=== PATIENT | female | born 1950 | race Hispanic/Latino ===

== ENCOUNTER 2018-05-24 05:56 | Inpatient (IN) | payer MEDICARE ==
[2018-05-20 16:49] VITALS: BMI 20.3
[2018-05-24] MEDS ORDERED: Ropivacaine 0.5% 30ML IV ONE (07:02)
[2018-05-24 07:09] LABS: BASO # 0.1 K/uL (0.0-0.2); BASO % 0.9 % (0.0-2.0); EOS # 0.2 K/uL (0.0-0.7); EOS % 2.1 % (0.0-4.0); HEMOGLOBIN 13.4 g/dL (12.0-16.0); LYMPH # 2.7 K/uL (1.0-4.3); LYMPH % 26.3 % (20.0-40.0); MEAN CELL VOLUME 99.7 fl (81.0-99.0); MEAN CORPUSCULAR HEMOGLOBIN 33.4 pg (27.0-31.0); MEAN CORPUSCULAR HGB CONC 33.6 g/dL (33.0-37.0); MEAN PLATELET VOLUME 7.8 fl (7.2-11.7); MONO % 9.6 % (0.0-10.0); NEUT # 6.3 K/uL (1.8-7.0); NEUT % 61.1 % (50.0-75.0); NRBC % 0.2 % (0.0-0.0); RBC 3.99 Mil/uL (3.80-5.20); RED CELL DISTRIBUTION WIDTH 14.1 % (11.5-14.5); WHITE BLOOD COUNT 10.4 K/uL (4.8-10.8)
[2018-05-24] MEDS ORDERED: Lidocaine 4% (Laryng-O-Jet) Kit MM ONE (07:12)
[2018-05-24] MEDS ORDERED: Rocuronium 10 mg/ml (5 ml) ONE ×2 (07:12→10:01)
[2018-05-24] MEDS ORDERED: Succinylcholine 200 mg/10 ml Inj IV ONE (07:12)
[2018-05-24] MEDS ORDERED: Propofol 10 mg/ml Inj (20 ML) ONE (07:12)
[2018-05-24] MEDS ORDERED: Neostigmine 1:1000 (1 mg/ml) Inj ONE (07:12)
--- NOTE | 2018-05-24 07:16 | CP.PCM.CON ---
History of Present Illness - History of Present Illness History of Present Illness: 67F complains of continued left shoulder pain after fall and proximal humerus fracture approx 6 weeks ago for total shoulder replacement. RHD. PMH: HTN, graves disease, wrist fx, arm fx as child PSH: right knee arthroscopy, cholecystectomy, appendectomy cardiology clearance is on chart no recent illness Review of Systems - Review of Systems All systems: reviewed and no additional remarkable complaints except - Musculoskeletal Musculoskeletal: As Per HPI Past Patient History - Past Medical History & Family History Past Medical History?: Yes Past Family History: Reviewed and not pertinent - Past Social History Smoking Status: Never Smoked - CARDIAC Hx Cardiac Disorders: Yes Hx Hypertension: Yes - PULMONARY Hx Respiratory Disorders: No - NEUROLOGICAL Hx Neurological Disorder: No - HEENT Hx HEENT Problems: No - RENAL Hx Chronic Kidney Disease: No - ENDOCRINE/METABOLIC Hx Endocrine Disorders: Yes Hx Hyperthyroidism: Yes Other/Comment: Graves disease - HEMATOLOGICAL/ONCOLOGICAL Hx Blood Disorders: No - INTEGUMENTARY Hx Dermatological Problems: No - MUSCULOSKELETAL/RHEUMATOLOGICAL Hx Musculoskeletal Disorders: Yes Hx Fractures: Yes (wrist, arm as child) - GASTROINTESTINAL Hx Gastrointestinal Disorders: No - GENITOURINARY/GYNECOLOGICAL Hx Genitourinary Disorders: No - PSYCHIATRIC Hx Psychophysiologic Disorder: Yes Hx Depression: Yes - SURGICAL HISTORY Hx Surgeries: Yes Hx Appendectomy: Yes Hx Arthroscopy: Yes (r KNEE 2016) Hx Cholecystectomy: Yes Other/Comment: RIGHT OVARIAN CYSTECTOMY - ANESTHESIA Hx Anesthesia: Yes Hx Anesthesia Reactions: No Hx Malignant Hyperthermia: No Has any member of the family had a problem w/ anesthesia?: No Meds Home Medications: Home Medication List Medication Instructions Recorded Confirmed Type Docusate [Colace] 100 mg PO DAILY #15 cap 05/25/18 Rx Ferrous Sulfate 325 mg PO BID #60 tablet 05/25/18 Rx oxyCODONE/Acetaminophen [Percocet 1 tab PO Q4 #20 tab 05/25/18 Rx 5/325 mg Tab] Allergies/Adverse Reactions: Allergies Allergy/AdvReac Type Severity Reaction Status Date / Time adhesive tape Allergy RASH Verified 05/20/18 16:50 Physical Exam - Constitutional Appears: Well, No Acute Distress - Neck Exam Neck exam: Positive for: Full Rom, Normal Inspection - Respiratory Exam Respiratory Exam: NORMAL BREATHING PATTERN - Cardiovascular Exam Additional comments: +radial pulse - Expanded Upper Extremities Exam Left Shoulder exam: normal inspection Neuro motor exam: finger 2-5 abduction intact, thumb abduction, thumb IP flexion intact, thumb opposition intact, wrist extension intact Neurosensory exam: median nerve intact, radial nerve intact, ulnar nerve intact Vascular exam: radial pulse - Neurological Exam Neurological exam: Alert, Oriented x3 - Psychiatric Exam Psychiatric exam: Normal Affect, Normal Mood - Skin Skin Exam: Dry, Intact, Normal Color, Warm Results - Vital Signs Recent Vital Signs: Last Vital Signs Temp 97.5 F L 05/24/18 06:40 Pulse 70 05/24/18 06:42 Resp 18 05/24/18 06:40 BP 147/80 05/24/18 06:40 Pulse Ox 100 05/24/18 06:40 - Labs Result Diagrams: 05/25/18 05:20 05/25/18 05:20 Labs: Laboratory Results - last 24 hr 05/24/18 06:55 WBC 10.4 RBC 3.99 Hgb 13.4 Hct 39.8 MCV 99.7 H MCH 33.4 H MCHC 33.6 RDW 14.1 Plt Count 213 MPV 7.8 Neut % (Auto) 61.1 Lymph % (Auto) 26.3 [place] % (Auto) 9.6 Eos % (Auto) 2.1 Baso % (Auto) 0.9 Neut # (Auto) 6.3 Lymph # (Auto) 2.7 [place] # (Auto) 1.0 H Eos # (Auto) 0.2 Baso # (Auto) 0.1 Assessment & Plan (1) Closed fracture of left proximal humerus Assessment and Plan: for total shoulder replacement today NPO T&S risks/benefits/alt of surgery discussed by Dr. Jay, patient verbalizes understanding and consents to procedure Status: Acute
[2018-05-24] MEDS ORDERED: Absorbable Gelatin Sponge Size 12-7 ONE (07:21)
[2018-05-24] MEDS ORDERED: Bacitracin Ointment 30 GM TUBE ONE (07:21)
[2018-05-24] MEDS ORDERED: Thrombin Topical 5,000 Int Units Spray Kit ONE (07:22)
--- NOTE | 2018-05-24 07:38 | CP.PCM.HP ---
History of Present Illness - History of Present Illness History of Present Illness: Orthopedist: Dr Jay PMD: Pedro Richey MD Chief Complaint: Left shoulder Pain The Patient was seen and evaluated in SDS unit HPI: 67 years old female with hx of Depression, Graves Disease with associated A Fib, Comes with pain to the left shoulder post fall with proximal left humerus fracture 6 weeks ago. She comes for an elective left total shoulder replacement. PMH: Graves Disease; Graves disease Flare associated Atrial Fibrillation; HTN; Wrist and arm fracture as a child PSH: Cholecystectomy; Appendectomy; Right knee Arthroplasty; Ovarian Cystostomy SH: Former smoker; No illegal drug use; No Alcohol; ; works as a Psychotherapist FH: States: No known family Hx Allergies: NKDA Adhesive tape Medication: Reviewed Present on Admission - Present on Admission Any Indicators Present on Admission: No History of DVT/PE: No History of Uncontrolled Diabetes: No Urinary Catheter: No Decubitus Ulcer Present: No Review of Systems - Constitutional Constitutional: absent: Anorexia, Chills, Fever, Headache, Lethargy - EENT Eyes: absent: Blurred Vision, Diplopia, Floaters, Requires Corrective Lenses Ears: absent: Decreased Hearing, Ear Discharge, Tinnitus Nose/Mouth/Throat: absent: Epistaxis, Nasal Congestion, Nasal Discharge, Sinus Pain, Sinus Pressure - Cardiovascular Cardiovascular: absent: Chest Pain, Dyspnea, Edema - Respiratory Respiratory: absent: Cough, Dyspnea, Wheezing, Stridor - Gastrointestinal Gastrointestinal: absent: Abdominal Pain, Constipation, Diarrhea - Genitourinary Genitourinary: absent: Dysuria, Flank Pain, Urinary Frequency - Musculoskeletal Musculoskeletal: Arthralgias. absent: Joint Swelling Additional comments: Left shoulder pain - Integumentary Integumentary: absent: Pruritus, Rash, Skin Ulcer, Sores, Striae, Swelling - Neurological Neurological: absent: Confusion, Dizziness, Focal Weakness, Weakness - Psychiatric Psychiatric: Anxiety, Depression. absent: Panic Attacks - Endocrine Endocrine: absent: Palpitations, Polydipsia, Polyphagia, Polyuria - Hematologic/Lymphatic Hematologic: absent: Easy Bleeding, Easy Bruising Past Patient History - Past Medical History & Family History Past Medical History?: Yes Past Family History: Reviewed and not pertinent - Past Social History Smoking Status: Former Smoker Chewing Tobacco Use: No Cigar Use: No Alcohol: None Home Situation {Lives}: With Family - CARDIAC Hx Cardiac Disorders: Yes Hx Hypertension: Yes - PULMONARY Hx Respiratory Disorders: No - NEUROLOGICAL Hx Neurological Disorder: No - HEENT Hx HEENT Problems: No - RENAL Hx Chronic Kidney Disease: No - ENDOCRINE/METABOLIC Hx Endocrine Disorders: Yes Hx Hyperthyroidism: Yes Other/Comment: Graves disease - HEMATOLOGICAL/ONCOLOGICAL Hx Blood Disorders: No - INTEGUMENTARY Hx Dermatological Problems: No - MUSCULOSKELETAL/RHEUMATOLOGICAL Hx Musculoskeletal Disorders: Yes Hx Fractures: Yes (wrist, arm as child) - GASTROINTESTINAL Hx Gastrointestinal Disorders: No - GENITOURINARY/GYNECOLOGICAL Hx Genitourinary Disorders: No - PSYCHIATRIC Hx Psychophysiologic Disorder: Yes Hx Depression: Yes - SURGICAL HISTORY Hx Surgeries: Yes Hx Appendectomy: Yes Hx Arthroscopy: Yes (r KNEE 2016) Hx Cholecystectomy: Yes Other/Comment: RIGHT OVARIAN CYSTECTOMY - ANESTHESIA Hx Anesthesia: Yes Hx Anesthesia Reactions: No Hx Malignant Hyperthermia: No Has any member of the family had a problem w/ anesthesia?: No Meds Allergies/Adverse Reactions: Allergies Allergy/AdvReac Type Severity Reaction Status Date / Time adhesive tape Allergy RASH Verified 05/20/18 16:50 Physical Exam - Constitutional Appears: No Acute Distress - Head Exam Head Exam: ATRAUMATIC, NORMAL INSPECTION, NORMOCEPHALIC - Eye Exam Eye Exam: EOMI, Normal appearance Pupil Exam: NORMAL ACCOMODATION, PERRL - ENT Exam ENT Exam: Mucous Membranes Moist, Normal Exam, Normal External Ear Exam - Neck Exam Neck exam: Positive for: Full Rom, Normal Inspection, Tenderness - Respiratory Exam Respiratory Exam: Clear to Auscultation Bilateral. absent: Rales, Rhonchi, Wheezes - Cardiovascular Exam Cardiovascular Exam: REGULAR RHYTHM, RRR, +S1, +S2 - GI/Abdominal Exam GI & Abdominal Exam: Normal Bowel Sounds, Soft. absent: Organomegaly, Tenderness - Rectal Exam Rectal Exam: Deferred - Extremities Exam Extremities exam: Positive for: full ROM, normal inspection. Negative for: calf tenderness, pedal edema - Back Exam Back exam: NORMAL INSPECTION. absent: CVA tenderness (L), CVA tenderness (R) - Neurological Exam Neurological exam: Alert, CN II-XII Intact, Oriented x3, Reflexes Normal - Psychiatric Exam Psychiatric exam: Normal Affect, Normal Mood - Skin Skin Exam: Dry, Intact, Normal Color, Warm Results - Vital Signs Recent Vital Signs: Last Vital Signs Temp 97.5 F L 05/24/18 06:40 Pulse 70 10/22/18 06:42 Resp 18 05/24/18 06:40 BP 147/80 05/24/18 06:40 Pulse Ox 100 05/24/18 06:40 - Labs Result Diagrams: 05/24/18 06:55 Labs: Laboratory Results - last 24 hr 05/24/18 05/24/18 06:55 06:55 WBC 10.4 RBC 3.99 Hgb 13.4 Hct 39.8 MCV 99.7 H MCH 33.4 H MCHC 33.6 RDW 14.1 Plt Count 213 MPV 7.8 Neut % (Auto) 61.1 Lymph % (Auto) 26.3 [place] % (Auto) 9.6 Eos % (Auto) 2.1 Baso % (Auto) 0.9 Neut # (Auto) 6.3 Lymph # (Auto) 2.7 [place] # (Auto) 1.0 H Eos # (Auto) 0.2 Baso # (Auto) 0.1 Crossmatch See Detail BBK History Checked No verified bt Assessment & Plan - Assessment and Plan (Free Text) Assessment: #. left proximal Humerus Fracture #. HTN 3. Depression #. Graves Disease #. Hx od A Fib Plan: 67 years old female with hx of Depression, Graves Disease with associated A Fib, Comes with pain to the left shoulder post fall with proximal left humerus fracture 6 weeks ago. She comes for an elective left total shoulder replacement. #. left proximal Humerus Fracture - Consult Orthopedic, Dr Jay - Orthopedic management - Pain management - OT/PT #. HTN - Propranolol when Patient could take Oral meds - Follow BP 3. Depression - Seroquel - Lamictal/ Wellbutrin/ Seroquel to start when meds could be taken orally #. Graves Disease - Propranolol #. A Fib when Graves disease flares. EKG was sinus Rhythm. She has A CHADS2 score of 1 and could be treated with ASA - Post Surgery ASA #. DVT prophylaxis with SCD Lovenox to start from 05/25/17 #. Code Status: Full - Date & Time Date: 05/24/18 Time: 07:37
[2018-05-24] MEDS ORDERED: Lactated Ringer's 1,000 ML IV ONE (07:50)
[2018-05-24] MEDS ORDERED: EPINEPHrine 1 mg/ml (1:1000) Inj ONE (08:12)
[2018-05-24] MEDS ORDERED: Dexamethasone 4 mg/1 ml ONE (08:52)
[2018-05-24] MEDS ORDERED: ePHEDrine 50 mg/ml Inj ONE (09:29)
[2018-05-24] MEDS ORDERED: Sodium Chloride 0.9% 10 ML IV ONE (09:30)
[2018-05-24] MEDS ORDERED: Phenylephrine 10 mg/ml Inj ONE (09:33)
[2018-05-24] MEDS ORDERED: Dexamethasone 4 mg/1 ml IVP PRN (11:02)
--- NOTE | 2018-05-24 11:05 | PCM.ANESB1 ---
Interscalene Block - Brachial Plexus Date of Procedure: 05/24/18 Anesthesiologist: Mateus Leal Pre-Procedure Diagnosis: L shoulder fracture Post-Procedure Diagnosis: L shoulder fracture Procedure Performed: Interscalene Block of Brachial Plexus Left - Procedure Interscalene Block of Brachial Plexus: This procedure was explained to the patient that it is for post-operative pain management. Consent was obtained after a thorough discussion with the patient regarding the benefits and possible complications of local anesthetic block of the Brachial Plexus at the Interscalene area. The patient was brought to the Operating Room and standard monitors were applied. Time out was held with the circulating nurse to confirm the correct surgery and appropriate block. After applying Oxygen by nasal cannula and administering IV Sedation, the patient's head was gently rotated away from the Left operative shoulder and the anterior scalene groove was carefully palpated. The ultrasound transducer was then applied to the skin in the transverse plane and the brachial plexus was visualized lateral to the carotid artery and in between the anterior and middle scalene muscles. After identification,the anterior lateral portion of the neck was prepped with Chloroprep and Lidocaine 1% was injected subcutaneously for topical analgesia. At this point, a # 22 gauge Stimuplex 2 inches insulated needle was inserted into the interscalene groove and directed in a caudal and midline direction. The needle was inserted lateral to the ultrasound transducer in-plane towards the brachial plexus in a [id number] direction. Needle advancement was performed carefully under direct ultrasound visualization. Nerve stimulator was used and twitched of the affected extremity including the hand brachialis muscles, biceps and the deltoid was obtained at a current of 0.4 MA. After repeated negative aspiration,20cc of 0.5% ropivacaine was injected in 5cc aliquots. Under ultrasound guidance the local anesthetics were observed surrounding the roots of the brachial plexus. The needle was removed intact and sterile dressing was applied. The patient had stable vital signs, was conscious and in no apparent distress. The patient tolerated the interscalene block of the bracheal plexus well with stable vital signs and was prepared for subsequent surgery.
[2018-05-24] MEDS ORDERED: Lactated Ringer's 1,000 ML IV SCH (11:15)
[2018-05-24] MEDS ORDERED: Sodium Chloride 0.9% 1,000 ML IV SCH (11:30)
--- NOTE | 2018-05-24 12:30 | RAD ---
Date of service: 05/24/2018 PROCEDURE: Radiographs of the Left Shoulder HISTORY: s/p total shoulder, pt in pacu COMPARISON: No prior. FINDINGS: BONES: Status post left glenohumeral arthroplasty. No acute osseous fracture. Prosthesis grossly intact. JOINTS: As above SOFT TISSUES: Normal. OTHER FINDINGS: None. IMPRESSION: Left glenohumeral arthroplasty.
--- NOTE | 2018-05-24 13:47 | PCM.SURG1 ---
Surgeon's Initial Post Op Note - Surgeon's Notes Surgeon: Pierre Mercury Cracking Tester: Christine Obrien PA-C/ IRVING Harmon Type of Anesthesia: General Endo, Block Regional Anesthesia Administered By: DR Coni Leal Pre-Operative Diagnosis: Displaced 4 aprt fracture L [proximal humerus. R/O pathologic fracture Operative Findings: As above. rupture rotator cuff. biceps tendomn attenuation Post-Operative Diagnosis: as above Operation Performed: L Total Shoulder Replacement. Open reduction internal fixation displaced proximal L humerus fractur3. tenodesis long head biceps tendon. repair L rotator cuff. arthrotomy. Primary L total shouder arthroplasty. ORIF proximal humerus fracture. biceps tenodesis (long head). promary repair L rotator cuff. arthtromy/excision labrum. /exsison labrum Specimen/Specimens Removed: bone cartilage fx- r/o pathologic fx L proximal humerus Estimated Blood Loss: EBL {In ML}: 80 Blood Products Given: N/A Drains Used: No Drains Post-Op Condition: Fair Date of Surgery/Procedure: 05/24/18 Time of Surgery/Procedure: 08:55 (time in room/anaesthesia indcution time- )
[2018-05-24] MEDS: oxyCODONE 5 mg Immediate Release Tab PO PRN ×2 (14:10→19:14)
[2018-05-24] MEDS: ceFAZolin 1 GM in Sodium Chloride 0.9% 50 ML IVPB SCH (17:01)
--- NOTE | 2018-05-24 17:30 | CP.PCM.PCO ---
<KenanSaCecily - Last Filed: 05/24/18 17:33> Assessment/Plan - Assessment and Plan (Free Text) Assessment: S: S/p L Total Shoulder Replacement POD 0 Pt is seen and examined by bedside. LUE in a sling. Endorsing some numbness of the hand and pain. Well controlled with pain meds. Ambulating and good PO intake. VS reviewed, stable GEN: NAD, in bed HEENT: EOMI C: S1S2 no additional heart sounds L: clear breath sounds b/l Abdomen: soft, BS+, non-tenderness Ext: LUE in a sling, dressing intact. Hand is warm, moving all fingers, cap refill <2 sec Neuro: AAO x 3 A/P: 67 YO female with PMHx of Depression, Graves Disease with associated A Fib, proximal left humerus fracture (6wks ago) with severe pain is admitted for left total shoulder replacement. -POD0 s/p L Total Shoulder Replacement -Pain management and IV Abx per ortho <Ashley Morelos - Last Filed: 05/24/18 19:02> Attending/Attestation - Attestation I have personally seen and examined this patient.: Yes I have fully participated in the care of the patient.: Yes I have reviewed all pertinent clinical information: Yes
[2018-05-25] MEDS: ceFAZolin 1 GM in Sodium Chloride 0.9% 50 ML IVPB SCH (00:47)
[2018-05-25 06:33] LABS: HEMOGLOBIN 10.7 g/dL (12.0-16.0); MEAN CELL VOLUME 99.6 fl (81.0-99.0); MEAN CORPUSCULAR HEMOGLOBIN 33.7 pg (27.0-31.0); MEAN CORPUSCULAR HGB CONC 33.9 g/dL (33.0-37.0); RBC 3.16 Mil/uL (3.80-5.20); RED CELL DISTRIBUTION WIDTH 14.2 % (11.5-14.5); WHITE BLOOD COUNT 8.6 K/uL (4.8-10.8)
[2018-05-25 06:51] LABS: BLOOD UREA NITROGEN 10 mg/dl (7-17); CALCIUM 8.5 mg/dL (8.4-10.2); GFR NON-AFRICAN AMERICAN > 60
[2018-05-25] MEDS: oxyCODONE 5 mg Immediate Release Tab PO PRN (07:32)
[2018-05-25 08:23] VITALS: BP 123/75; PULSE 75; RESP 18; TEMP 98.5; O2SAT 97
--- NOTE | 2018-05-25 08:34 | CP.PCM.PN ---
Subjective - Date & Time of Evaluation Date of Evaluation: 05/25/18 Time of Evaluation: 07:30 - Subjective Subjective: Patient seen and examined at bedside comfortable. Pain increased overnight as nerve block effects wearing off. Otherwise pain controlled with oral medications. No acute events overnight. Offers no other complaints. Denies CP/SOB/N/V/fever/dizziness. Objective - Vital Signs/Intake and Output Vital Signs (last 24 hours): Temp Pulse Resp BP Pulse Ox 98.5 F 75 18 123/75 97 05/25/18 08:22 05/25/18 08:22 05/25/18 08:22 05/25/18 08:22 05/25/18 08:22 - Medications Medications: Current Medications Acetaminophen (Tylenol 325mg Tab) 650 mg PO Q6 [facility] Last Admin: 05/25/18 04:24 Dose: Not Given Bupropion HCl (Wellbutrin) 450 mg PO DAILY [facility] Docusate Sodium (Colace) 100 mg PO BID [facility] Last Admin: 05/24/18 17:02 Dose: 100 mg Lactated Ringer's (Lactated Ringer's) 1,000 mls @ 100 mls/hr IV .Q10H [facility] Methimazole (Tapazole) 2.5 mg PO DAILY [facility] Morphine Sulfate (Morphine) 2 mg IVP Q4 PRN PRN Reason: Pain, severe (8-10) Last Admin: 05/25/18 02:56 Dose: 2 mg Ondansetron HCl (Zofran Inj) 4 mg IVP Q6 PRN PRN Reason: Nausea/Vomiting Oxycodone HCl (Oxycodone Immediate Release Tab) 5 mg PO Q4H PRN PRN Reason: Pain, moderate (4-7) Last Admin: 05/25/18 07:32 Dose: 5 mg Propranolol HCl (Inderal) 40 mg PO BID [facility] Quetiapine Fumarate (Seroquel) 100 mg PO HS [facility] Last Admin: 05/24/18 22:38 Dose: 100 mg Zolpidem Tartrate (Ambien) 5 mg PO HS PRN PRN Reason: Insomnia - Labs Labs: 05/25/18 05:20 05/25/18 05:20 - Extremities Exam Additional comments: LUE: +swelling and tenderness 2nd to surgery shoulder immobilizer intact Aquacel dressings CDI, dressing removed revealing wound CDI with steri strips, no drainage sensation and motor intact MN/UN/RN radial pulse intact comps soft Assessment and Plan (1) Closed fracture of left proximal humerus Assessment & Plan: POD#1 s/p L reverse TSR doing well -PT/OT NWB LUE -keep immobilized -dressings changed -orthopedically stable for discharge to home today -f/u in office within 7 days -above d/w Dr. Jay in agreement Status: Acute
[2018-05-25] MEDS ORDERED: methIMAzole 5 MG TAB PO SCH (09:00)
[2018-05-25] MEDS ORDERED: Enoxaparin 40 mg Syringe SC SCH (09:00)
[2018-05-25] MEDS ORDERED: oxyCODONE 10 mg Immediate Release Tab PO PRN (09:57)
[2018-05-25] MEDS ORDERED: oxyCODONE 5 mg Immediate Release Tab PO PRN (09:58)
--- NOTE | 2018-05-25 10:01 | CP.PCM.DIS ---
<Cecily Grayson - Last Filed: 05/25/18 10:21> Provider - Provider Date of Admission: 05/24/18 12:56 Attending physician: Jair Poe Primary care physician: Alonzo Jay III, MD Time Spent in preparation of Discharge (in minutes): 35 Diagnosis - Discharge Diagnosis (1) Closed fracture of left proximal humerus Status: Acute (2) Graves' disease Status: Chronic Priority: Medium Hospital Course - Lab Results Lab Results: Most Recent Lab Values WBC 8.6 K/uL (4.8-10.8) 05/25/18 05:20 RBC 3.16 Mil/uL (3.80-5.20) L 05/25/18 05:20 Hgb 10.7 g/dL (12.0-16.0) L D 05/25/18 05:20 Hct 31.5 % (34.0-47.0) L 05/25/18 05:20 MCV 99.6 fl (81.0-99.0) H 05/25/18 05:20 MCH 33.7 pg (27.0-31.0) H 05/25/18 05:20 MCHC 33.9 g/dL (33.0-37.0) 05/25/18 05:20 RDW 14.2 % (11.5-14.5) 05/25/18 05:20 Plt Count 137 K/uL (130-400) 05/25/18 05:20 MPV 7.8 fl (7.2-11.7) 05/24/18 06:55 Neut % (Auto) 61.1 % (50.0-75.0) 05/24/18 06:55 Lymph % (Auto) 26.3 % (20.0-40.0) 05/24/18 06:55 [place] % (Auto) 9.6 % (0.0-10.0) 05/24/18 06:55 Eos % (Auto) 2.1 % (0.0-4.0) 05/24/18 06:55 Baso % (Auto) 0.9 % (0.0-2.0) 05/24/18 06:55 Neut # (Auto) 6.3 K/uL (1.8-7.0) 05/24/18 06:55 Lymph # (Auto) 2.7 K/uL (1.0-4.3) 05/24/18 06:55 [place] # (Auto) 1.0 K/uL (0.0-0.8) H 05/24/18 06:55 Eos # (Auto) 0.2 K/uL (0.0-0.7) 05/24/18 06:55 Baso # (Auto) 0.1 K/uL (0.0-0.2) 05/24/18 06:55 Sodium 137 mmol/l (132-148) 05/25/18 05:20 Potassium 3.6 MMOL/L (3.6-5.0) 05/25/18 05:20 Chloride 104 mmol/L (98-107) 05/25/18 05:20 Carbon Dioxide 26 mmol/L (22-30) 05/25/18 05:20 Anion Gap 11 (10-20) 05/25/18 05:20 BUN 10 mg/dl (7-17) 05/25/18 05:20 Creatinine 0.6 mg/dl (0.7-1.2) L 05/25/18 05:20 Est GFR ( Amer) > 60 05/25/18 05:20 Est GFR (Non-Af Amer) > 60 05/25/18 05:20 Random Glucose 93 mg/dL (65-105) 05/25/18 05:20 Calcium 8.5 mg/dL (8.4-10.2) 05/25/18 05:20 Blood Type A POSITIVE 05/24/18 06:55 Blood Type Confirm A POSITIVE 05/24/18 07:45 Antibody Screen Negative 05/24/18 06:55 Crossmatch See Detail 05/24/18 06:55 BBK History Checked No verified bt 05/24/18 06:55 - Hospital Course Hospital Course: 67 YO female with PMHx of Depression, Graves Disease with associated A Fib, proximal left humerus fracture (6wks ago) with severe pain is admitted for left total shoulder replacement. S/p L Total Shoulder Replacement POD1, pt is doing well, hemodynamically stable at this time. Patient cleared by ortho for d/c home, does not need any anticoagulation. Patient was seen by PT for discharge home with home PT. Will discharge patient home with follow up with Ortho clinic and home PT. Meds Percocet PRN pain Q4 PRN Ferrous sulfate 325mgPO BID Colace 100mg PO daily PRN Discharge Exam - Head Exam Head Exam: ATRAUMATIC, NORMAL INSPECTION, NORMOCEPHALIC - Eye Exam Eye Exam: Normal appearance - ENT Exam ENT Exam: Mucous Membranes Moist - Respiratory Exam Respiratory Exam: Clear to PA & Lateral, NORMAL BREATHING PATTERN. absent: Wheezes - Cardiovascular Exam Cardiovascular Exam: REGULAR RHYTHM, +S1, +S2 - GI/Abdominal Exam GI & Abdominal Exam: Normal Bowel Sounds, Soft. absent: Tenderness - Extremities Exam Extremities exam: normal inspection Additional comments: LUE in a sling, dressing intact. Hand is warm, moving all fingers, cap refill <2 sec - Neurological Exam Neurological exam: Alert, Oriented x3 - Psychiatric Exam Psychiatric exam: Normal Mood Discharge Plan - Discharge Medications Prescriptions: Docusate [Colace] 100 mg PO DAILY #15 cap Ferrous Sulfate 325 mg PO BID #60 tablet oxyCODONE/Acetaminophen [Percocet 5/325 mg Tab] 1 tab PO Q4 #20 tab - Follow Up Plan Condition: GOOD Disposition: HOME/ ROUTINE Patient education suggested?: Yes Instructions: Shoulder Fracture (DC) Additional Instructions: Please follow up in Ortho clinic ER precautions reviewed with patient; Shortness of breath, chest pain, palpitations, fever over 100.4 with Tylenol Referrals: Alonzo Jay III, MD [Primary Care Provider] - <Ashley Morelos - Last Filed: 05/25/18 17:16> Provider - Provider Date of Admission: 05/24/18 12:56 Attending physician: Jair Poe Primary care physician: Alonzo Jay III, MD Hospital Course - Lab Results Lab Results: Most Recent Lab Values WBC 8.6 K/uL (4.8-10.8) 05/25/18 05:20 RBC 3.16 Mil/uL (3.80-5.20) L 05/25/18 05:20 Hgb 10.7 g/dL (12.0-16.0) L D 05/25/18 05:20 Hct 31.5 % (34.0-47.0) L 05/25/18 05:20 MCV 99.6 fl (81.0-99.0) H 05/25/18 05:20 MCH 33.7 pg (27.0-31.0) H 05/25/18 05:20 MCHC 33.9 g/dL (33.0-37.0) 05/25/18 05:20 RDW 14.2 % (11.5-14.5) 05/25/18 05:20 Plt Count 137 K/uL (130-400) 05/25/18 05:20 MPV 7.8 fl (7.2-11.7) 05/24/18 06:55 Neut % (Auto) 61.1 % (50.0-75.0) 05/24/18 06:55 Lymph % (Auto) 26.3 % (20.0-40.0) 05/24/18 06:55 [place] % (Auto) 9.6 % (0.0-10.0) 05/24/18 06:55 Eos % (Auto) 2.1 % (0.0-4.0) 05/24/18 06:55 Baso % (Auto) 0.9 % (0.0-2.0) 05/24/18 06:55 Neut # (Auto) 6.3 K/uL (1.8-7.0) 05/24/18 06:55 Lymph # (Auto) 2.7 K/uL (1.0-4.3) 05/24/18 06:55 [place] # (Auto) 1.0 K/uL (0.0-0.8) H 05/24/18 06:55 Eos # (Auto) 0.2 K/uL (0.0-0.7) 05/24/18 06:55 Baso # (Auto) 0.1 K/uL (0.0-0.2) 05/24/18 06:55 Sodium 137 mmol/l (132-148) 05/25/18 05:20 Potassium 3.6 MMOL/L (3.6-5.0) 05/25/18 05:20 Chloride 104 mmol/L (98-107) 05/25/18 05:20 Carbon Dioxide 26 mmol/L (22-30) 05/25/18 05:20 Anion Gap 11 (10-20) 05/25/18 05:20 BUN 10 mg/dl (7-17) 05/25/18 05:20 Creatinine 0.6 mg/dl (0.7-1.2) L 05/25/18 05:20 Est GFR ( Amer) > 60 05/25/18 05:20 Est GFR (Non-Af Amer) > 60 05/25/18 05:20 Random Glucose 93 mg/dL (65-105) 05/25/18 05:20 Calcium 8.5 mg/dL (8.4-10.2) 05/25/18 05:20 Blood Type A POSITIVE 05/24/18 06:55 Blood Type Confirm A POSITIVE 05/24/18 07:45 Antibody Screen Negative 05/24/18 06:55 Crossmatch See Detail 05/24/18 06:55 BBK History Checked No verified bt 05/24/18 06:55 Attending/Attestation - Attestation I have personally seen and examined this patient.: Yes I have fully participated in the care of the patient.: Yes I have reviewed all pertinent clinical information, including history, physical exam and plan: Yes
--- NOTE | 2018-05-25 10:18 | CP.PCM.CON ---
History of Present Illness - History of Present Illness History of Present Illness: This 67 year old female was initially seen by me as an outpatient. she had fallen and fractured her left shoulder and a chest x-ray done at that time revealed a right upper lobe pneumonia. She remained hospitalized and treated with parenteral antibiotics for 4 days after which she was discharged to home to continue oral medications. A coincidental finding at that time also was the presence of a urinary tract infection for which she had been given nitrofurantoin. When seen as an outpatient she was already improving and no longer was having any cough or fatigue. She also did not complain of any dysuria or frequency. A follow up chest x-ray did document the clearing of the pneumonia and she continued to rest at home for another 2+ weeks before having the surgical procedure. Past Patient History - Past Medical History & Family History Past Medical History?: Yes Past Family History: Reviewed and not pertinent - Past Social History Smoking Status: Former Smoker (stopped 4 years ago) Chewing Tobacco Use: No Cigar Use: No Alcohol: Social Drugs: Denies Home Situation {Lives}: With Family - CARDIAC Hx Hypertension: Yes - PULMONARY Hx Pneumonia: Yes (x 2) - NEUROLOGICAL Hx Neurological Disorder: No - HEENT Hx HEENT Problems: No - RENAL Hx Chronic Kidney Disease: No - ENDOCRINE/METABOLIC Hx Hyperthyroidism: Yes Other/Comment: Graves disease - HEMATOLOGICAL/ONCOLOGICAL Other/Comment: mononucleosis - INTEGUMENTARY Hx Dermatological Problems: No - MUSCULOSKELETAL/RHEUMATOLOGICAL Hx Fractures: Yes (wrist, arm as child) - GASTROINTESTINAL Hx Gastrointestinal Disorders: No - GENITOURINARY/GYNECOLOGICAL Hx Urinary Tract Infection: Yes - PSYCHIATRIC Hx Bipolar Disorder: Yes Hx Depression: Yes Other/Comment: insomnia - SURGICAL HISTORY Hx Surgeries: Yes Hx Appendectomy: Yes Hx Arthroscopy: Yes (r KNEE 2015) Hx Cholecystectomy: Yes Other/Comment: RIGHT OVARIAN CYSTECTOMY - ANESTHESIA Hx Anesthesia: Yes Hx Anesthesia Reactions: No Hx Malignant Hyperthermia: No Has any member of the family had a problem w/ anesthesia?: No Meds Home Medications: Home Medication List Medication Instructions Recorded Confirmed Type Docusate [Colace] 100 mg PO DAILY #15 cap 05/25/18 Rx Ferrous Sulfate 325 mg PO BID #60 tablet 05/25/18 Rx oxyCODONE/Acetaminophen [Percocet 1 tab PO Q4 #20 tab 05/25/18 Rx 5/325 mg Tab] Allergies/Adverse Reactions: Allergies Allergy/AdvReac Type Severity Reaction Status Date / Time adhesive tape Allergy RASH Verified 05/20/18 16:50 - Medications Medications: Current Medications Acetaminophen (Tylenol 325mg Tab) 650 mg PO Q6 [facility] Last Admin: 05/25/18 04:24 Dose: Not Given Bupropion HCl (Wellbutrin) 450 mg PO DAILY [facility] Docusate Sodium (Colace) 100 mg PO BID [facility] Last Admin: 05/25/18 09:08 Dose: 100 mg Lactated Ringer's (Lactated Ringer's) 1,000 mls @ 100 mls/hr IV .Q10H [facility] Methimazole (Tapazole) 2.5 mg PO DAILY [facility] Last Admin: 05/25/18 09:10 Dose: 2.5 mg Morphine Sulfate (Morphine) 2 mg IVP Q4 PRN PRN Reason: Pain, severe (8-10) Last Admin: 05/25/18 02:56 Dose: 2 mg Ondansetron HCl (Zofran Inj) 4 mg IVP Q6 PRN PRN Reason: Nausea/Vomiting Oxycodone HCl (Oxycodone Immediate Release Tab) 10 mg PO Q4 PRN PRN Reason: Pain, moderate (4-7) Oxycodone HCl (Oxycodone Immediate Release Tab) 5 mg PO Q4H PRN PRN Reason: Pain, Mild (1-3) Propranolol HCl (Inderal) 40 mg PO BID [facility] Last Admin: 05/25/18 09:09 Dose: 40 mg Quetiapine Fumarate (Seroquel) 100 mg PO HS [facility] Last Admin: 05/24/18 22:38 Dose: 100 mg Zolpidem Tartrate (Ambien) 5 mg PO HS PRN PRN Reason: Insomnia Physical Exam - Additional Findings Additional findings: Awake, alert and cooperative with physical exam. Left upper extremity is immobilized and a surgical dressing is applied. Mentation is clear and speech is fluent. No palpable lymphadenopathy. Pharynx is pink and mucous membranes are moist without exudate. Nares are patent bilaterally. No bleeding or exudate. Neck is supple and trachea is midline. No neck vein distention or carotid bruit. No dullness on percussion of the posterior thorax. Equal expansion. Breath sounds are well heard bilaterally with no rales or wheezes. No bronchial breathing or egophony. No rhonchi. Heart sounds are slightly distant and the rhythm is regular without any murmur heard. Abdomen is soft and nontender with normal bowel sounds. No dependent edema of the lower extremities. No cyanosis. Results - Vital Signs Recent Vital Signs: Last Vital Signs Temp 98.5 F 05/25/18 08:22 Pulse 75 05/25/18 09:09 Resp 18 05/25/18 08:22 BP 123/75 05/25/18 09:09 Pulse Ox 97 05/25/18 08:22 - Labs Result Diagrams: 05/25/18 05:20 05/25/18 05:20 Labs: Laboratory Results - last 24 hr 05/24/18 05/24/18 05/25/18 06:55 07:45 05:20 WBC 8.6 RBC 3.16 L Hgb 10.7 L D Hct 31.5 L MCV 99.6 H MCH 33.7 H MCHC 33.9 RDW 14.2 Plt Count 137 Sodium Potassium Chloride Carbon Dioxide Anion Gap BUN Creatinine Est GFR ( Amer) Est GFR (Non-Af Amer) Random Glucose Calcium Blood Type A POSITIVE Blood Type Confirm A POSITIVE Antibody Screen Negative Crossmatch See Detail BBK History Checked No verified bt 05/25/18 05:20 WBC RBC Hgb Hct MCV MCH MCHC RDW Plt Count Sodium 137 Potassium 3.6 Chloride 104 Carbon Dioxide 26 Anion Gap 11 BUN 10 Creatinine 0.6 L Est GFR ( Amer) > 60 Est GFR (Non-Af Amer) > 60 Random Glucose 93 Calcium 8.5 Blood Type Blood Type Confirm Antibody Screen Crossmatch BBK History Checked Assessment & Plan (1) Pneumonia Status: Resolved Priority: Medium Comment: Recently recovered from RUL pneumonia which was a coincidental finding on chest x-ray when she fractured her left shoulder. (2) Graves' disease Status: Chronic Priority: Medium Comment: On medication, clinically euthyroid. (3) Bipolar 1 disorder Status: Chronic Priority: Medium Comment: Well managed with medical therapy. - Date & Time Date: 05/25/18 Time: 10:15
--- NOTE | 2018-05-25 23:37 | OP ---
PROCEDURE DATE: 05/24/2018 PREOPERATIVE DIAGNOSIS: Displaced comminuted four-part fracture subluxation of the left proximal humerus/left shoulder. POSTOPERATIVE DIAGNOSES: 1. Displaced comminuted four-part fracture subluxation of the left proximal humerus/left shoulder. 2. Rotator cuff tear. 3. Attenuation biceps tendon. OPERATIVE PROCEDURES: 1. Reverse left total shoulder replacement arthroplasty. 2. Open reduction and internal fixation of proximal humerus fracture with cerclage #5 FiberWire x3. 3. Primary repair of rotator cuff tear. 4. Biceps tenodesis. SURGEON: Alonzo Jay MD PROFESSIONAL PROGRAMMER ANALYST: Deja Ayon, certified registered nursing waiter/waitress first class. SECOND ADVANCED QUALITY ENGINEER: Ari Moon PA-C COMPLICATIONS: No complications. DRAINS: No drains. ANESTHESIA: General and regional anesthesia. ANESTHESIA ADMINISTERED BY: Michael Leal MD OPERATIVE INDICATION: Brittnee Guerra is now six weeks status post complex fracture and dislocation of the left shoulder. The patient had sustained an injury. Unfortunately, while the injury was being treated, the patient developed pneumonia. Different opinions regarding the pneumonia are persistent. The patient was sent to a third pulmonary doctor. Pulmonary clearance was finally obtained six weeks after the fracture. Pros, cons, risks and benefits of surgical approach were discussed with the patient and her , Mehdi. The possibility of stiffness, mechanical failure, infection, thromboembolic disease, possibility of secondary or tertiary surgeries were discussed. The patient can no longer withstand the discomfort and wished the surgery to be accomplished. OPERATIVE PROCEDURE: After having obtained informed consent in the above fashion, after the satisfactory induction of general and regional anesthesia, after having identified side, site and procedure and critical pause/time-out, after the satisfactory induction of general and regional anesthesia, after having obtained informed consent in the above fashion, the patient identified as Brittnee Guerra in the modified joaquin chair position, the left upper extremity was placed in the Arthrex shoulder positioner. The topographic anatomy of the shoulder was marked, the spine in the scapula, the lateral aspect of the acromion, and the coracoid process were marked. An incision was described from the distal third of the clavicle to the point of the deltoid. The skin incision was carried down through the skin and subcutaneous tissue. After insufflation of the skin with solution of 1:1000 epinephrine in 200 mL of saline, the skin incision was carried down through the skin and subcutaneous tissue. The deltopectoral interval was identified and at this point in time, the clavipectoral fascia was divided. The strap muscles were identified, and a retractor was placed. With progressive external rotation, an incision was described in the rotator cuff which was already torn in the area of the lesser tuberosity. The skin incision was carried down through the skin and subcutaneous tissue with further rotation. The shoulder was dislocated. There was found to be more comminution of the four-part fracture. The lower subscapular vessels were controlled. The rotator cuff was tagged. The biceps tendon which was attenuated was tenotomized intact. This having been accomplished, the greater tuberosity fragment was debrided and the proximal humeral fracture was cerclaged with three #5 FiberWires. This having been accomplished, the intramedullary guide was accomplished. At the appropriate anteversion, the humeral neck osteotomy was accomplished. Bone biopsy was accomplished at this point in time. At this point in time, the humeral osteotomy having been accomplished, the glenoid was exposed with anterior glenoid and superior glenoid retractors. Arthrotomy and excision of the labrum were accomplished. At this point in time, the sizing of the glenoid was to a standard glenoid. The guide pin was introduced. Reaming was accomplished. At this point in time, reaming having been satisfactorily accomplished, the osteophytes were debrided using the bur. Reaming was accomplished in the central portion of the glenoid. The glenoid plate was introduced. Two screws were drilled, sounded, and the appropriate size screws were placed. The glenosphere was introduced. The glenosphere was tightened. This having been accomplished, glenosphere was accomplished and at this point in time, sequential introduction of the stem having been accomplished, the glenosphere was tightened. The intramedullary stem was placed and trialing was accomplished. This having been accomplished, trialing was accomplished with two base plates and a 3.5 polyethylene to bring the construct to the appropriate level. Stability was accomplished in all planes. The wound was thoroughly irrigated. At this point in time, the appropriate size 16-mm stem was prepared. Double plates were applied and the 3.5-mm polyethylene. The shoulder was reduced and found to be stable in all planes. The wound was thoroughly irrigated. Hemostasis was controlled with Aquamantys. The rotator cuff was repaired primarily posteriorly and anteriorly to the prosthesis, and the biceps was tenodesed with interrupted FiberWire suture. It should be noted that open reduction and internal fixation of the proximal humeral fracture had been accomplished with three #5 FiberWire sutures. The wound was thoroughly irrigated. Hemostasis was controlled with the Aquamantys. Closure was accomplished with interrupted Vicryl and claudy for skin. A compression dressing and shoulder immobilizer were applied. Postoperative x-rays reveal excellent position of the construct. Alonzo Jay MD
== END 2018-05-25 15:49 | disposition home health service (06) | DRG 483 ==
LOC: H.OPSURG 05:56 → H.MEDSURG1 12:56
PROVIDERS: ADMIT Internal Medicine; ATTEND Internal Medicine
PROC: 0LQ20ZZ Repair Left Shoulder Tendon, Open Approach (ICD-10-PCS; 2018-05-24)
PROC: 0LS40ZZ Reposition Left Upper Arm Tendon, Open Approach (ICD-10-PCS; 2018-05-24)
PROC: 3E0T3BZ Introduction of Anesthetic Agent into Peripheral Nerves and Plexi, Percutaneous Approach (ICD-10-PCS; 2018-05-24)
PROC: 0RRK00Z Replacement of Left Shoulder Joint with Reverse Ball and Socket Synthetic Substitute, Open Approach (ICD-10-PCS; principal; 2018-05-24 10:45)
PROC: 0PSD04Z Reposition Left Humeral Head with Internal Fixation Device, Open Approach (ICD-10-PCS; 2018-05-24 10:45)
DX: S42.202A Unspecified fracture of upper end of left humerus, initial encounter for closed fracture (principal); E05.00 Thyrotoxicosis with diffuse goiter without thyrotoxic crisis or storm; F31.9 Bipolar disorder, unspecified; I10 Essential (primary) hypertension; I48.91 Unspecified atrial fibrillation; Z87.01 Personal history of pneumonia (recurrent); Z87.440 Personal history of urinary (tract) infections; W19.XXXD Unspecified fall, subsequent encounter; Z87.891 Personal history of nicotine dependence; Z90.49 Acquired absence of other specified parts of digestive tract; Z96.651 Presence of right artificial knee joint; Z86.19 Personal history of other infectious and parasitic diseases; E05.90 Thyrotoxicosis, unspecified without thyrotoxic crisis or storm; S43.005A Unspecified dislocation of left shoulder joint, initial encounter; R20.0 Anesthesia of skin